=== PATIENT | female | born 1990 | race Caucasian/White ===

== ENCOUNTER 2018-09-02 08:20 | Emergency (ER) | payer BC ==
[~2018-09-02] VITALS: Ht 177.8 cm; Wt 79.4 kg
[2018-09-02 08:30] VITALS: BP 107/79
--- NOTE | 2018-09-02 08:30 | NUR ---
BIB SELF. AAO X4 C/O DIFFICULTY BREATHING AFTER TAKING BACTRIM FOR UTI THIS MORNING. + NAUSEA, DENIES ANY RASHES, DENIES SWELLING, DENIES CHEST PAIN. CLEAR EQUAL GEORGE LUNGS UPON AUSCULTATION. O2 SAT AT 99% RA. HOB UP. BED SIDE RAILS UP X1. ON LOW BED POSITION, LOCKED. ER MADE AWARE OF PT STATUS.
--- NOTE | 2018-09-02 08:32 | NUR ---
Patient ambulated to bed 11. RN evaluating patient at bedside.
--- NOTE | 2018-09-02 08:40 | NUR ---
Dr. Ayala evaluating patient at bedside.
--- NOTE | 2018-09-02 08:47 | NUR ---
DR KENNEDY AT BEDSIDE FOR PT EVALUATION
[2018-09-02] MEDS ORDERED: LORATADINE 10 MG TAB PO ONE (08:55)
[2018-09-02] MEDS ORDERED: IPRATROPIUM 0.02% 0.5 MG/2.5 ML NEBU INH ONE (08:55)
[2018-09-02] MEDS ORDERED: ALBUTEROL 0.083% 2.5 MG/3 ML NEBU INH ONE (08:55)
--- NOTE | 2018-09-02 09:01 | NUR ---
[facility] THERAPY [facility] RESPIRATORY DRUG GIVEN ORDERED ENCOURAGED PATIENT FOR INTERMITTENT DEEP BREATHING DURING THERAPY
--- NOTE | 2018-09-02 09:03 | NUR ---
RESPIRATORY THERAPIST AT BEDSIDE.
--- NOTE | 2018-09-02 09:15 | NUR ---
PT AAO X4. PT STATES THAT SHE FEELS BETTER AFTER THE BREATHING TX. O2 SAT AT 98% RA. NO SIGNS AND SYMPTOMS OF DISTRESS NOTED.
--- NOTE | 2018-09-02 09:37 | NUR ---
DR KENNEDY AT BEDSIDE FOR PT RE EVALUATION
[2018-09-02 09:47] VITALS: BP 122/63
--- NOTE | 2018-09-02 09:47 | NUR ---
Patient discharged with v/s stable. Written and verbal after care instructions given and explained. Patient alert, oriented and verbalized understanding of instructions. Ambulatory with steady gait. All questions addressed prior to discharge. ID band removed. Patient advised to follow up with PMD. Rx of Albuterol, Cephalexin, Claritin given. Patient educated on indication of medication including possible reaction and side effects. Opportunity to ask questions provided and answered.
== END 2018-09-02 09:47 | disposition home or self-care (01) ==
LOC: MED 08:20
DX: N39.0 Urinary tract infection, site not specified (principal); R06.02 Shortness of breath
CPT/HCPCS: 81025; 94640; 99283; J7613; J7644